=== PATIENT | female | born 1950 ===

== ENCOUNTER → 2020-06-25 | Outpatient (CLI) | payer SELFPAY | LOC: LAB SHORT 07:11 | DX: L30.8 Other specified dermatitis (principal) | CPT/HCPCS: 88312 ==

== ENCOUNTER → 2022-05-18 | Outpatient (CLI) | payer OTHER, MEDICARE ==
[2022-05-18 20:58] LABS: Percent Saturation 30.1 % (15.0-50.0)
== END | disposition home or self-care (01) ==
LOC: LAB SHORT 15:45
PROVIDERS: Family Medicine
DX: G25.81 Restless legs syndrome (principal)
CPT/HCPCS: 82728; 83540; 83550

== ENCOUNTER → 2022-11-19 | Outpatient (CLI) | payer OTHER, MEDICARE | LOC: LAB SHORT 19:18 → LAB 19:18 | DX: E03.9 Hypothyroidism, unspecified (principal) | CPT/HCPCS: 84443 ==